=== PATIENT | male | born 1960 | race Caucasian/White ===

== ENCOUNTER → 2017-04-19 | Outpatient (CLI) | payer OTHER ==
[~2017-04-19] MED LIST: IOHEXOL 350 MG/ML 10 ML VIAL (for RAD DIAG) IVCONTRAST ONE
--- NOTE | 2017-04-19 13:59 | RADRPT ---
EXAM DATE/TIME: 04/19/2017 13:08 [facility] COMPARISON: No previous studies available for comparison. INDICATIONS : Malignant tumor on prostate IV CONTRAST: 76 cc Omnipaque 350 (iohexol) IV ORAL CONTRAST: Prescribed oral contrast ingested. RADIATION DOSE: 4.73 CTDIvol (mGy) MEDICAL HISTORY : Prostate tumor SURGICAL HISTORY : None. ENCOUNTER: Initial ACUITY: 1 day PAIN SCALE: 0/10 LOCATION: abdomen TECHNIQUE: Volumetric scanning of the abdomen and pelvis was performed. Using automated exposure control and ad justment of the mA and/or kV according to patient size, radiation dose was kept as low as reasonably achievable to obtain optimal diagnostic quality images. DICOM format image data is available electro nically for review and comparison. FINDINGS: The liver and spleen are normal in size and no focal defects are identified. The gallbladder and panc reas are unremarkable. No intrahepatic or extrahepatic ductal dilatation is seen. The left kidney is unremarkable. There is a single simple cyst in the right kidney measuring 6 mm in the lower pole The prostate gland is enlarged measuring 4.8 x 3.8 CM with adenopathy extending to the level of the r enal hilus on the left measuring 10 mm and extending inferiorly to the bifurcation into both sides of the pelvis with the largest lymph node in the left side measuring 3.1 x 1.8 There is punctate sclerotic density in the right side of the L1 vertebral body measuring 5 mm. The ap pearance is nonspecific. There is also punctate area sclerosis involving the right sacral ala. CONCLUSION: 1. Findings of prostate carcinoma with metastatic adenopathy along the bifurcation and in both sides the hemipelvis. 2. Nonspecific sclerosis in the spine as above. PET/CT scan is recommended to further evaluation if c linically indicated. Sacha Vega MD on April 19, 2017 at 13:49 Board Certified Radiologist. This report was verified electronically.
--- NOTE | 2017-04-19 15:39 | RADRPT ---
EXAM DATE/TIME: 04/19/2017 14:45 [facility] COMPARISON: CT ABDOMEN & PELVIS W CONTRAST, April 19, 2017, 13:08. PRIOR BONE SCANS: No correlative bone scan available for comparison. INDICATIONS : Prostate cancer. DOSE: 31.2 mCi Tc99m MDP IV MEDICAL HISTORY : Smoker. SURGICAL HISTORY : Biopsy. ENCOUNTER: Initial ACUITY: 1 week PAIN SCALE: 0/10 LOCATION: Bilateral pelvis TECHNIQUE: Three hours post intravenous administration of radiotracer, whole body bone scan imaging was performe d. FINDINGS: There is symmetrical renal function. On the whole body bone scan scattered focal areas of increased uptake are seen in the left pelvis, sc attered through the axial spine and ribs. Correlating with the CT scan this is suspicious for metast atic disease. CONCLUSION: Bone scan would be consistent with widespread metastatic disease. There is no eviden ce for lesion within impending fracture. Torrey Prieto MD FACR on April 19, 2017 at 15:35 Board Certified Radiologist. This report was verified electronically.
== END ==
LOC: HRAD 10:14
PROVIDERS: ATTEND Urology
DX: C61 Malignant neoplasm of prostate (principal)
CPT/HCPCS: 74177; 78306; A9503; Q9967